=== PATIENT | female | born 1960 | race Caucasian/White ===

== ENCOUNTER 2019-06-28 08:12 | Emergency (ER) | payer BC ==
--- OUTSIDE RECORDS SUMMARY | 2019-06-28 08:41 | XMS REPORT | Summary of Care ---
:1960 Author Organization [facility] Address [address] [place] [address] Care Team Providers Name Role Phone Kellie Alfred MD PhD Primary Care Provider Reason for Visit Reason Comments Follow-up BALLOON PROCEDURE Encounter Details Date Type Department Care Team Description 05/31/2019 Procedure visit [facility] Naveed Chronic pansinusitis ( Primary Dx); Otolaryngology MD Elpidio Nasal obstruction; [facility] [address] Hypertrophy of both inferior nasal turbinates at [facility] [address] [address] [address] [facility] [phone] [place], [place] [phone] (Fax) [phone] Allergies Active Allergy Reactions Severity Noted Date Comments Penicillins Rash Low 07/03/2014 documented as of this encounter (statuses as of 06/01/2019) Medications Medication Sig Dispensed Refills Start Date End Date Status hydrocortisone 0 10/02/2015 Active valerate (WEST-NATE) 0.2 % ointment hydrocortisone 2.5 % 0 11/15/2015 Active ointment Apremilast (OTEZLA) 30 Take 1 tablet by 60 tablet 0 11/18/2016 Active MG TABS mouth Two times daily before meals Cholecalciferol Take by mouth 0 Active (VITAMIN D PO) GLUCOSAMINE-CHONDROITI Take by mouth 0 Active N ER PO fluticasone (FLONASE) 2 sprays by 16 g 12 11/11/2018 11/10/2019 Active 50 MCG/ACT nasal spray Nasal route daily diazePAM 5 MG Oral 1 tab PO one 1 tablet 0 05/27/2019 Active Tablet (VALIUM) hour before procedure HYDROcodone-Acetaminop 2 tab PO one 12 tablet 0 05/27/2019 Active hen 5-325 MG Oral hour before Tablet (LORTAB) procedure then 1tab PO q6h prn pain after levoFLOXacin 500 MG Take 1 tablet by 10 tablet 0 05/27/2019 06/06/2019 Active Oral Tablet (LEVAQUIN) mouth daily for 10 days documented as of this encounter (statuses as of 06/01/2019) Active Problems Problem Noted Date Psoriasis 11/18/2016 Bilateral edema of lower extremity 05/29/2016 Breast cancer, 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 Left foot pain 08/14/2014 Fatigue 06/14/2014 S/P mastectomy 06/14/2014 Overview: Had DCIS and Colloid Ca in right. Negative for BRCA 1+2. Went agressive with double mastectomy but no chemo or radiation. Negative lymph nodes. S/P breast reconstruction, bilateral 06/14/2014 documented as of this encounter (statuses as of 06/01/2019) Immunizations Name Administration Dates Next Due Influenza Quad IM with Pres (0.5 mL dose) 02/21/2015 documented as of this encounter Social History Tobacco Use Types Packs/Day Years Used Date Never Smoker Smokeless Tobacco: Never Used Alcohol Use Drinks/Week oz/Week Comments Yes Occasionally Sex Assigned at Date Recorded Not on file Job Start Date Occupation Industry Not on file Not on file Not on file Travel History Travel Start Travel End No recent travel history available. documented as of this encounter Last Filed Vital Signs Not on filedocumented in this encounter Progress Notes Naveed Levy MD - 05/31/2019 2:00 PM EST Dictation on: 06/01/2019 4:02 PM by: NAVEED LEVY [[id number]] documented in this encounter Plan of Treatment Date Type Specialty Care Team Description 06/09/2019 Office Visit Otolaryngology Naveed Levy MD [address] [place] [address] [place] [address] [phone] Health Maintenance Due Date Last Done Comments MMR Vaccines (1 of 1 - 1961 Standard series) Varicella Vaccines (1 of 2 1961 - 2-dose childhood series) Pneumococcal Vaccine: 1966 Pediatrics (0 to 5 Years) and At-Risk Patients (6 to 64 Years) (1 of 3 - PCV13) DTaP,Tdap,and Td Vaccines 08/27/1967 (1 - Tdap) Breast Cancer Screening 2 11/18/2018 11/18/2016, 11/18/2016, years 05/30/2016, Additional history exists Influenza Vaccine 02/01/2019 02/21/2015 Cervical Cancer Screening 5 11/18/2021 11/18/2016 years Colon Cancer Screening 10 06/01/2023 06/01/2013 yrs Pneumococcal Vaccine: 65+ 2025 Years (1 of 2 - PCV13) Hepatitis C Screening (B. Completed 11/02/2015 [id number]) HIV Screening Completed 11/20/2015 HIB Vaccines Aged Out No longer eligible based on patient's age to complete this topic Hepatitis A Vaccines Aged Out No longer eligible based on patient's age to complete this topic Hepatitis B Vaccines Aged Out No longer eligible based on patient's age to complete this topic IPV Vaccines Aged Out No longer eligible based on patient's age to complete this topic documented as of this encounter Results Not on filedocumented in this encounter Visit Diagnoses Diagnosis Chronic pansinusitis - Primary Other chronic sinusitis Nasal obstruction Other diseases of nasal cavity and sinuses Hypertrophy of both inferior nasal turbinates Hypertrophy of nasal turbinates documented in this encounter
--- OUTSIDE RECORDS SUMMARY | 2019-06-28 08:41 | XMS REPORT | Summary of Care ---
:1960 Author Organization [facility] Address [address] [place] [address] Care Team Providers Name Role Phone Kellie Alfred MD PhD Primary Care Provider Reason for Visit Reason Comments Post-op pt states that eveything has been fine since she had the procedure Encounter Details Date Type Department Care Team Description 06/09/2019 Office Visit [facility] Chronic pansinusitis ( Primary Dx); Otolaryngology MD Elpidio Nasal obstruction [facility] at [address] [place] [address] [place], [place] [address] [address] [address] [place], [place] [phone] (Fax) [phone] Allergies Active Allergy Reactions Severity Noted Date Comments Penicillins Rash Low 07/03/2014 documented as of this encounter (statuses as of 06/09/2019) Medications Medication Sig Dispensed Refills Start Date [...] then 1tab PO q6h prn pain after documented as of this encounter (statuses as of 06/09/2019) Active Problems Problem Noted Date Psoriasis 11/18/2016 [...] as of this encounter (statuses as of 06/09/2019) Immunizations Name Administration Dates Next Due Influenza [...] of this encounter Last Filed Vital Signs Vital Sign Reading Time Taken Comments Blood Pressure - - Pulse - - Temperature - - Respiratory Rate - - Oxygen Saturation - - Inhaled Oxygen Concentration - - Weight 81.6 kg (180 lb) 06/09/2019 9:09 AM EST Height 162.6 cm (5' 4") 06/09/2019 9:09 AM EST Body Mass Index 30.9 06/09/2019 9:09 AM EST documented in this encounter Progress Notes Itzel Lucero MD - 06/09/2019 9:00 AM Arturo Carlton is a 58 y.o. female here s/p in-office balloon sinuplasty on 05/31/2019 under the indications of chronic sinusitis without improvement on maximum medical management. She noted severe painduring the procedure. With regards to the recovery, she has been doing well and her pain was controlled with minimal to no pain medication and bleeding is resolved. The patient has been doing well post-op, breathing is better without purulent discharge. The patient has been using saline rinses consistently, and believes her PND is resolved. On physical exam nares patent with good airflow bilaterally, and the turbinates are reduced with minimal swelling. The remainder of the head and neck exam otherwise unremarkable. Procedure Note Pre-operative Diagnosis: post-op FESS Post-operative Diagnosis: same Anesthesia: Lidocaine 4% and Javier-Synephrine 1/2% Endoscopy Type: Nasal Endoscopy Procedure Details: After topical anesthesia and decongestion, the patient was placed in the sitting position. the zero degree endoscope was used to inspect the interior of the nasal cavity and the middle and superior meatus, the turbinates and the sphenoethmoid recess. Both right and left sides were inspected.The following findings were noted as stated below: Findings: Nasal cavity: Clear without pus or polyps. Septum deviated to the left without evidence of hematoma or perforation. Widely patent maxillary antrostomies bilaterally, scant mucoid discharge on the L. Debris suctioned out without evidence of pus or polyps. Middle meatus: Clear without pus or polyps; frontal and maxillary sinusotomies patent (bilateral) Superior meatus: Clear without pus or polyps, sphenoidotomy patent (bilateral) Turbinates: Well reduced, minimal swelling. Clear without pus or polyps ( bilateral) Sphenoethmoidal recess: Clear without pus or polyps (bilateral) Condition: Stable. Patient tolerated procedure well. Complications: None A/P- In my opinion the patient is doing well post-op although her pain control during the procedure was not optimal. Reassuring exam today. Follow up prn. -Continue with saline rinses and nasal hydration. -Finish course of abx -f/u here prn documented in this encounter Plan of Treatment Health Maintenance Due Date Last Done Comments MMR Vaccines (/25/1962 Standard series) Varicella Vaccines (1 of 2 [...] PCV13) Hepatitis C Screening (B. Completed 11/02/2015 [id number]) HIV Screening Completed 11/20/2015 HIB Vaccines Aged [...] Other diseases of nasal cavity and sinuses documented in this encounter
[2019-06-28 08:50] VITALS: BP 116/78
[2019-06-28 09:15] LABS: Influenza A Molecular POSITIVE (Negative)
--- NOTE | 2019-06-28 09:25 | UC ---
Throat Pain/Nasal [place] HPI - HPI Summary HPI Summary: sore throat x 3 days cough / nasal congestion , pnd, fever, chills and body aches symptoms are not improving with otc meds - History of Current Complaint Chief Complaint: UCGeneralIllness Stated Complaint: ST Time Seen by Provider: 06/28/19 08:55 Hx Obtained From: Patient Onset/Duration: Gradual Onset, Lasting Days - 3, Still Present Severity: Moderate Pain Intensity: 6 Cough: Productive Associated Signs & Symptoms: Positive: Nasal Discharge, Fever. Negative: Wheezing, Sinus Discomfort, Rash - Allergies/Home Medications Allergies/Adverse Reactions: Allergies Allergy/AdvReac Type Severity Reaction Status Date / Time Penicillins Allergy Rash Verified 06/28/19 08:46 Home Medications: Home Medications NK [No Home Medications Reported] 06/28/19 [History Confirmed 06/28/19] PMH/Surg Hx/FS Hx/Imm Hx - Additional Past Medical History Additional PMH: psoriasis - Surgical History Surgical History: None - Family History Known Family History: Negative: Diabetes - Social History Alcohol Use: Occasionally Substance Use Type: None Smoking Status (MU): Never Smoked Tobacco Review of Systems All Other Systems Reviewed And Are Negative: Yes Constitutional: Positive: Fever, Chills, Fatigue Skin: Positive: Negative Eyes: Positive: Negative ENT: Positive: Sore Throat, Nasal Discharge Respiratory: Positive: Cough Is Patient Immunocompromised?: No Physical Exam Triage Information Reviewed: Yes Appearance: No Pain Distress, Well-Nourished Vital Signs: Initial Vital Signs Temp 100.1 F 06/28/19 08:47 Pulse 90 06/28/19 08:47 Resp 14 06/28/19 08:47 BP 116/78 06/28/19 08:47 Pulse Ox 99 06/28/19 08:47 Vital Signs Reviewed: Yes Eyes: Positive: Conjunctiva Clear ENT: Positive: Normal ENT inspection, Hearing grossly normal, Pharynx normal. Negative: Pharyngeal erythema Dental Exam: Normal Neck: Positive: Supple, Nontender, No Lymphadenopathy Respiratory: Positive: Chest non-tender, Lungs clear, Normal breath sounds Cardiovascular: Positive: RRR, No Murmur, Pulses Normal Throat Pain/Nasal Course/Dx - Differential Dx/Diagnosis Provider Diagnosis: Influenza Discharge ED - Sign-Out/Discharge Documenting (check all that apply): Patient Departure All imaging exams completed and their final reports reviewed: No Studies - Discharge Plan Condition: Stable Disposition: HOME Patient Education Materials: Influenza (ED) Referrals: No Primary Care Phys,NOPCP [Primary Care Provider] - If Needed - Billing Disposition and Condition Condition: STABLE Disposition: Home
== END 2019-06-28 09:25 | disposition home or self-care (01) ==
LOC: UCCORT 08:12
DX: J11.1 Influenza due to unidentified influenza virus with other respiratory manifestations (principal); L40.9 Psoriasis, unspecified; Z88.0 Allergy status to penicillin
CPT/HCPCS: 99201; G0463